=== PATIENT | female | born 1975 | race Caucasian/White ===

== ENCOUNTER 2022-10-11 10:55 | Emergency (ER) | payer BC, MEDICAID, SELFPAY ==
[2022-10-11 11:06] VITALS: BP 109/76; PULSE 85; RESP 18; TEMP 36.2; O2SAT 96; BMI 31.3
--- NOTE | 2022-10-11 11:53 | CRLHL7_ITS ---
For Patients: As a result of the Century Cures Act, medical imaging exams and procedure reports are released immediately into your electronic medical record. You may view this report before your referring provider. If you have questions, please contact your health care provider. HISTORY: Cough and shortness of breath. TECHNIQUE: Two views of the chest. COMPARISON: 01/22/2022. FINDINGS: There is no acute lung infiltrate or pulmonary edema. No pneumothorax or pleural effusion. Heart size and pulmonary vasculature are within normal limits. No acute bony abnormality. IMPRESSION: No acute disease. Dictated by Jr Merino MD @ 10/11/2022 12:41:00 PM Dictated by: Jr Merino MD @ 10/11/2022 12:41:03 (Electronically Signed)
--- NOTE | 2022-10-11 11:55 | ED.GENADULT ---
HPI - General Adult General Chief complaint: Cough Stated complaint: Short of breath, headache, cough Time Seen by Provider: 10/11/22 11:42 History of Present Illness HPI narrative: This 47-year-old female comes in reporting upper respiratory symptoms that began a couple weeks ago. She states that she got better for 4 5 days but now in the last day or so she feels much worse with shortness of breath, cough, and generalized body aches and pains. She does arrive with normal temperature, pulse, and oximetry on room air. Related Data Home Medications Medication Instructions Recorded Confirmed buspirone 15 mg tablet 15 mg PO DAILY 10/11/22 10/11/22 citalopram 20 mg tablet 20 mg PO .every other day 10/11/22 10/11/22 gabapentin 100 mg capsule 100 mg PO DAILY 10/11/22 10/11/22 lorazepam 0.5 mg tablet 0.5 mg PO PRN 10/11/22 pantoprazole 40 mg tablet,delayed 40 mg PO DAILY 10/11/22 10/11/22 release trazodone 50 mg tablet 50 mg PO PRN 10/11/22 Previous Rx's Medication Instructions Recorded albuterol sulfate 90 mcg/actuation 2 puff inhalation Q4-6H PRN 10/11/22 aerosol inhaler (Proventil HFA) shortness of breath or wheezing #8.5 grams azithromycin 250 mg tablet See Rx Instructions PO .COMPLEX #6 10/11/22 (Zithromax Z-Simón) tabs methylprednisolone 4 mg tablets in See Rx Instructions PO .COMPLEX 10/11/22 a dose pack (Medrol (Simón)) #21 ea Allergies Allergy/AdvReac Type Severity Reaction Status Date / Time clindamycin Allergy Intermediate Verified 10/11/22 11:10 Penicillins Allergy Unknown as child Verified 10/11/22 11:10 Review of Systems Status of ROS: Reports: 10 or more systems reviewed and unremarkable except as noted in History and below Narrative: Constitutional: No fevers, no weight gain or loss. Eyes: No discharge. No vision changes. HENT: Nasal congestion, no sore throat, no ear pain. Cardiovascular: No chest pain, no palpitations. Respiratory: Occasional cough. Shortness of breath. Gastrointestinal: No abdominal pain, no vomiting, no diarrhea. Genitourinary: No dysuria, no hematuria. Musculoskeletal: Normal range of motion. Skin: No rashes, no pruritis. Neurological: No dizziness, weakness, sensory change, speech change. Endo/Heme/Allergies: No bruising or bleeding. No polydipsia. Pysch: no suicidality, no anxiety, no insomnia. All other systems reviewed and are negative. Exam Narrative: Exam Narrative: Constitutional: Well-developed, well-nourished, no acute distress. HEENT: Normocephalic, atraumatic. Neck: Normal range of motion. Nontender. Supple. Heart: Regular. No murmurs. Normal rate. Intact distal pulses. Lungs: Clear to auscultation. No chest discomfort. No wheezes, rhonchi, or rales. Abdomen: Normal bowel sounds. Nontender. No rebound tenderness. Genitalia: Deferred. Back: No midline tenderness. Normal range of motion. Extremities: Normal range of motion. No injury. Skin: Intact. No rash. Warm. No erythema or pallor. Neurologic: No altered sensation. No weakness. Alert and oriented. Psychiatric: No suicidality. No anxiety or depression. No insomnia. Nursing notes and vitals signs are reviewed. Const: Vital Signs, click to edit/add: Vital Signs - 24 hr 10/11/22 11:06 Temperature 97.1 F L Pulse Rate [Pulse Oximeter] 85 Respiratory Rate 18 Blood Pressure [Ri ght Upper Arm] 109/76 Pulse Oximetry 96 Oxygen Delivery Me thod Room Air Course Vital Signs Vital signs: Initial Vital Signs Temperature 97.1 F L 10/11/22 11:06 Temperature Source Temporal Artery Scan 10/11/22 11:06 Pulse Rate 85 10/11/22 11:06 Respiratory Rate 18 10/11/22 11:06 Blood Pressure 109/76 10/11/22 11:06 Blood Pressure Mean 87 10/11/22 11:06 Blood Pressure Position Sitting 10/11/22 11:06 Pulse Oximetry 96 10/11/22 11:06 Oxygen Delivery Method 10/11/22 11:06 Vital Signs Temperature 97.1 F L 10/11/22 11:06 Pulse Rate 85 10/11/22 11:06 Respiratory Rate 18 10/11/22 11:06 Blood Pressure 109/76 10/11/22 11:06 Pulse Oximetry 96 10/11/22 11:06 Oxygen Delivery Method 10/11/22 11:06 Temperature 97.1 F L 10/11/22 11:06 Pulse Rate 85 10/11/22 11:06 Respiratory Rate 18 10/11/22 11:06 Blood Pressure 109/76 10/11/22 11:06 Pulse Oximetry 96 10/11/22 11:06 Oxygen Delivery Method 10/11/22 11:06 Medical Decision Making MDM Narrative Medical decision making narrative: This patient comes in reporting worsening upper respiratory symptoms over the past day or so. A chest x-ray returns with no acute findings. Additionally her nasal swab is negative for COVID, influenza, and RSV. She feels short of breath but is maintaining normal oximetry and other vital signs. Given the duration of her illness an worsening symptoms recently I did prescribe Zithromax, Medrol Dosepak, and albuterol. She is okay to return home. Lab Data Labs: Lab Results 10/11/22 Range/Units 11:12 SARS-CoV-2 (PCR) Negative SARS-CoV-2 (Negative) Influenza Type A (PCR) Negative PCR FLU A (Negative) Influenza Type B (PCR) Negative PCR FLU B (Negative) RSV (PCR) Negative PCR RSV (Negative) Imaging Data Chest x-ray: Radiologist's impression: No acute disease. Discharge Plan Discharge Clinical Impression: Acute lower respiratory infection Patient Disposition: Home, Self-Care Condition: Stable Additional Instructions: Take medication as prescribed. Follow up with MD or return if worsening. Prescriptions: New methylprednisolone [Medrol (Simón)] 4 mg tablets,dose pack See Rx Instructions .ROUTE .COMPLEX Qty: 21 0RF Rx Instructions: orally per package directions azithromycin [Zithromax Z-Simón] 250 mg tablet See Rx Instructions .ROUTE .COMPLEX Qty: 6 0RF Rx Instructions: For 250 mg dose pack: take 500 mg today (day 1), then 250 mg for 4 days (days 2-5) albuterol sulfate [Proventil HFA] 90 mcg/actuation HFA aerosol inhaler 2 puff inhalation Q4-6H PRN (Reason: shortness of breath or wheezing) Qty: 8.5 0RF No Action buspirone 15 mg tablet 15 mg PO DAILY trazodone 50 mg tablet 50 mg PO PRN citalopram 20 mg tablet 20 mg PO .every other day lorazepam 0.5 mg tablet 0.5 mg PO PRN pantoprazole 40 mg tablet,delayed release (DR/EC) 40 mg PO DAILY gabapentin 100 mg capsule 100 mg PO DAILY Follow Up/Referrals: North Gamboa MD [Primary Care Provider] - Stand Alone Forms: [employer] Info Instructions
[2022-10-11 11:58] LABS: PCR FLU A Negative PCR FLU A (Negative); PCR FLU B Negative PCR FLU B (Negative); PCR RSV Negative PCR RSV (Negative)
[2022-10-11 11:59] LABS: SARS PCR* Negative SARS-CoV-2 (Negative)
[2022-10-11] MEDS: dexAMETHasone 10 MG/ML inj PO (12:12)
== END 2022-10-11 13:25 | disposition home or self-care (01) ==
PROVIDERS: Emergency Provider Emergency Medicine Emergency Medical Services; PCP Family Medicine
DX: J22 Unspecified acute lower respiratory infection (principal)
CPT/HCPCS: 71046; 87502; 87634; 87635; 99284; J1100

== ENCOUNTER 2023-11-21 18:28 | Emergency (ER) | payer BC, MEDICAID, SELFPAY ==
[2023-11-21 18:56] VITALS: BP 110/77; PULSE 105; RESP 16; TEMP 36.9; O2SAT 98; BMI 31.6
--- NOTE | 2023-11-21 19:19 | ED.GENADULT ---
HPI - General Adult General Chief complaint: Nausea/Vomiting Stated complaint: Alcohol Withdrawl Time Seen by Provider: 11/21/23 18:43 History of Present Illness HPI narrative: This 48-year-old female comes in thinking that she is experiencing symptoms of withdrawal from alcohol. She states that she has been cutting way back in her alcohol consumption and sometimes goes about 4 days without any drink at all. Yesterday she did have beer, wine, and hard drinks. Today she awoke from a nap and felt very anxious and tremulous. She does have some Ativan at home and states that she took 1.5 mg and now feels better and somewhat sleepy. She states that her last drink was a couple beers this morning. Currently she does not have any abdominal pain but reports significant nausea. Related Data Home Medications Medication Instructions Recorded Confirmed buspirone 15 mg tablet 15 mg PO DAILY 10/11/22 10/11/22 citalopram 20 mg tablet 20 mg PO .every other day 10/11/22 11/21/23 gabapentin 100 mg capsule 100 mg PO DAILY 10/11/22 11/21/23 lorazepam 0.5 mg tablet 0.5 mg PO PRN 10/11/22 pantoprazole 40 mg tablet,delayed 40 mg PO DAILY 10/11/22 11/21/23 release trazodone 50 mg tablet 50 mg PO PRN 10/11/22 thiamine HCl (vitamin B1) 100 mg 100 mg PO DAILY 11/21/23 11/21/23 tablet Previous Rx's Medication Instructions Recorded albuterol sulfate 90 mcg/actuation 2 puff inhalation Q4-6H PRN 10/11/22 aerosol inhaler (Proventil HFA) shortness of breath or wheezing #8.5 grams Allergies Allergy/AdvReac Type Severity Reaction Status Date / Time clindamycin Allergy Intermediate Verified 11/21/23 18:52 Penicillins Allergy Unknown as child Verified 11/21/23 18:52 sertraline Allergy Unknown Verified 11/21/23 18:53 Review of Systems Status of ROS: Reports: 10 or more systems reviewed and unremarkable except as noted in History and below Narrative: Constitutional: No fevers, no weight gain or loss. Eyes: No discharge. No vision changes. HENT: No congestion, no sore throat, no ear pain. Cardiovascular: No chest pain, no palpitations. Respiratory: No shortness of breath, no wheezes, no cough. Gastrointestinal: No abdominal pain, no vomiting, no diarrhea. Genitourinary: No dysuria, no hematuria. Musculoskeletal: Normal range of motion. Skin: No rashes, no pruritis. Neurological: No dizziness, weakness, sensory change, speech change. Endo/Heme/Allergies: No bruising or bleeding. No polydipsia. Pysch: no suicidality, no anxiety, no insomnia. Alcohol abuse. All other systems reviewed and are negative. PFSH PFSH Social History Smoking Status: Unknown if ever smoked Do you use any of these nicotine containing products: None How often do you have a drink containing alcohol: monthly or less How often do you have six or more drinks on one occasion: Never AUDIT-C Alcohol total score: 1 Non-prescribed substance use: denies use Exam Narrative: Exam Narrative: Constitutional: Well-developed, well-nourished, no acute distress. HEENT: Normocephalic, atraumatic. Neck: Normal range of motion. Nontender. Supple. Heart: Regular. No murmurs. Tachycardia, 105 beats per minute. Intact distal pulses. Lungs: Clear to auscultation. No chest discomfort. No wheezes, rhonchi, or rales. Abdomen: Normal bowel sounds. Nontender. No rebound tenderness. Genitalia: Deferred. Back: No midline tenderness. Normal range of motion. Extremities: Normal range of motion. No injury. Skin: Intact. No rash. Warm. No erythema or pallor. Neurologic: No altered sensation. No weakness. Alert and oriented. Psychiatric: No suicidality. No insomnia. Nursing notes and vitals signs are reviewed. Const: Vital Signs, click to edit/add: Vital Signs - 24 hr 11/21/23 18:56 11/21/23 19:46 Temperature 98.5 F Pulse Rate [Pulse Oximeter] 105 H 89 Respiratory Rate 16 16 Blood Pressure [Ri ght Upper Arm] 110/77 122/72 Pulse Oximetry 98 97 Oxygen Delivery Me thod Room Air Room Air Course Vital Signs Vital signs: Initial Vital Signs Temperature 98.5 F 11/21/23 18:56 Temperature Source Temporal Artery Scan 11/21/23 18:56 Pulse Rate 105 H 11/21/23 18:56 Pulse Rhythm Regular 11/21/23 18:56 Respiratory Rate 16 11/21/23 18:56 Blood Pressure 110/77 11/21/23 18:56 Blood Pressure Mean 88 11/21/23 18:56 Blood Pressure Position Sitting 11/21/23 18:56 Pulse Oximetry 98 11/21/23 18:56 Oxygen Delivery Method Room Air 11/21/23 18:56 Vital Signs Temperature 98.5 F 11/21/23 18:56 Pulse Rate 105 H 11/21/23 18:56 Respiratory Rate 16 11/21/23 18:56 Blood Pressure 110/77 11/21/23 18:56 Pulse Oximetry 98 11/21/23 18:56 Oxygen Delivery Method Room Air 11/21/23 18:56 Temperature 98.5 F 11/21/23 18:56 Pulse Rate 89 11/21/23 19:46 Respiratory Rate 16 11/21/23 19:46 Blood Pressure 122/72 11/21/23 19:46 Pulse Oximetry 97 11/21/23 19:46 Oxygen Delivery Method Room Air 11/21/23 19:46 Medications Administered Medications: Generic Name Dose Route Start Last Admin Trade Name Yanira PRN Reason Stop Dose Admin Sodium Chloride 1,000 mls @ 1,000 mls/hr 11/21/23 19:30 11/21/23 19:40 0.9 % Sodium Chloride 1000 Ml IV 11/21/23 20:29 1,000 mls/hr .Q1H SUJATA Administration Ondansetron HCl 4 mg 11/21/23 19:18 11/21/23 19:40 Ondansetron 2 Mg/Ml Inj IVP 11/21/23 19:19 4 mg ONCE ONE Administration Medical Decision Making MDM Narrative Medical decision making narrative: This patient comes in reporting some symptoms of withdrawal that are now much better upon arrival as she had taken 1.5 mg of Ativan prior to arrival. She does complain of some nausea. She arrives with mild tachycardia but otherwise has normal vital signs. An IV was established where she received a L of normal saline and 4 mg of Zofran. Lab results returned with normal findings. The patient is feeling better and is okay to return home. I did offer detox but she declined this and states that she typically is doing better and his cutting way back on use of alcohol except for yesterday where she had more than normal. She is okay to return home and did receive a prescription for Zofran. Lab Data Labs: Lab Results 11/21/23 Range/Units 19:40 WBC 5.97 (4.50-11.00) K/uL RBC 3.96 L (4.00-5.20) m/uL Hgb 13.0 (12.0-16.0) gm/dL Hct 38.5 (33.0-51.0) % MCV 97 (80-100) fL MCH 33 (26-34) pg MCHC 34 (32-36) gm/dL RDW Coeff of Vannessa 12.2 (11.5-15.5) % Plt Count 323 (140-440) K/uL Neut % (Auto) 48.4 (42.0-72.0) % Lymph % (Auto) 36.2 (20-44) % [place]ud[place]eth % (Auto) 11.4 H (0.0-11.0) % Eos % (Auto) 2.5 (0.0-7.0) % Baso % (Auto) 1.3 (0.0-3.0) % Neut # (Auto) 2.89 (1.7-7.0) K/uL Lymph # (Auto) 2.16 (0.90-2.90) K/uL [place] # (Auto) 0.70 (0.00-0.90) K/UL Eos # (Auto) 0.15 (0.00-0.50) K/uL Baso # (Auto) 0.08 (0.00-0.30) K/uL Abs Immat Gran (auto) 0.01 (0.00-0.30) K/uL Imm/Tot Granulo (auto) 0.2 % Sodium 138 (135-149) mmol/L Potassium 3.9 (3.6-5.1) mmol/L Chloride 102 (96-114) mmol/L Carbon Dioxide 24 (20-32) mmol/L Anion Gap 12 (7-15) mEq/L BUN 19 (5-24) mg/dL Creatinine 1.0 (0.5-1.5) mg/dL Estimated Creat Clear 63.25 Estimated GFR 70 ml/min Glucose 83 (60-115) mg/dL Calcium 8.7 (8.4-10.6) mg/dL Ethyl Alcohol 0.01 (0.01-0.03) % Discharge Plan Discharge Additional Instructions: Take Zofran as needed and directed for nausea symptoms. Follow up with MD return if worsening. Prescriptions: No Action buspirone 15 mg tablet 15 mg PO DAILY trazodone 50 mg tablet 50 mg PO PRN citalopram 20 mg tablet 20 mg PO .every other day lorazepam 0.5 mg tablet 0.5 mg PO PRN pantoprazole 40 mg tablet,delayed release (DR/EC) 40 mg PO DAILY gabapentin 100 mg capsule 100 mg PO DAILY albuterol sulfate [Proventil HFA] 90 mcg/actuation HFA aerosol inhaler 2 puff inhalation Q4-6H PRN (Reason: shortness of breath or wheezing) Qty: 8.5 0RF thiamine HCl (vitamin B1) 100 mg tablet 100 mg PO DAILY Follow Up/Referrals: [place] Gamb[place] MD [Referring] - Stand Alone Forms: [employer] Info Instructions
[2023-11-21] MEDS: 0.9 % SODIUM CHLORIDE 1000 ml 1,000 ML IV (19:40)
[2023-11-21] MEDS: ONDANSETRON 2 MG/ML inj 4 MG IVP (19:40)
[2023-11-21 19:46] VITALS: BP 122/72; PULSE 89; RESP 16; O2SAT 97
[2023-11-21 19:46] LABS: Basophils Absolute Auto 0.08 K/uL (0.00-0.30); Basophils Percent Auto 1.3 % (0.0-3.0); Eosinophils Absolute Auto 0.15 K/uL (0.00-0.50); Eosinophils Percent Auto 2.5 % (0.0-7.0); Hematocrit 38.5 % (33.0-51.0); Immature Granulocytes Abs Auto 0.01 K/uL (0.00-0.30); Immature Granulocytes Pct Auto 0.2 %; Lymphocytes Absolute Auto 2.16 K/uL (0.90-2.90); Lymphocytes Percent Auto 36.2 % (20-44); Mean Corpuscular HGB Conc 34 gm/dL (32-36); Mean Corpuscular Hemoglobin 33 pg (26-34); Mean Corpuscular Volume 97 fL (80-100); Monocytes Percent Auto 11.4 % (0.0-11.0); Neutrophils Absolute Auto 2.89 K/uL (1.7-7.0); Neutrophils Percent Auto 48.4 % (42.0-72.0); Platelet Count* 323 K/uL (140-440); RDW Coefficient of Variation % 12.2 % (11.5-15.5); Red Blood Count 3.96 m/uL (4.00-5.20); White Blood Count* 5.97 K/uL (4.50-11.00)
[2023-11-21 20:03] LABS: Slide Review Reflex No
[2023-11-21 20:04] LABS: Chloride* 102 mmol/L (96-114)
[2023-11-21 20:05] LABS: Potassium* 3.9 mmol/L (3.6-5.1); Sodium* 138 mmol/L (135-149)
--- NOTE | 2023-11-21 20:05 | PC.NURSE ---
patient given information from intranet SS page about chemical dependency resources and how to contact [facility] for resources
[2023-11-21 20:07] LABS: Anion Gap 12 mEq/L (7-15); Carbon Dioxide* 24 mmol/L (20-32); Est. Creatinine Clearance* 63.25; Estimated Glomerular Filt Rate 70 ml/min
[2023-11-21 20:08] LABS: Blood Urea Nitrogen* 19 mg/dL (5-24); Calcium* 8.7 mg/dL (8.4-10.6); Ethanol* 0.01 % (0.01-0.03); Glucose* 83 mg/dL (60-115)
--- NOTE | 2023-11-21 20:29 | PC.NURSE ---
patient DC ambulatory in no distress, RR even and unlabored. DC information gone over and patient has no further questions
== END 2023-11-21 20:29 | disposition home or self-care (01) ==
PROVIDERS: Emergency Provider Emergency Medicine Emergency Medical Services
DX: F10.239 Alcohol dependence with withdrawal, unspecified (principal)
CPT/HCPCS: 36415; 80048; 82077; 85025; 96374; 99284; J2405; J7030

== ENCOUNTER 2023-12-22 06:52 | Outpatient (CLI) | payer MEDICAID, SELFPAY | END 2023-12-22 06:53 | disposition home or self-care (01) | LOC: INJ CL 06:54 | PROVIDERS: PCP Family Medicine; Visit Provider Family Medicine | DX: M51.26 Other intervertebral disc displacement, lumbar region (principal); M54.16 Radiculopathy, lumbar region | CPT/HCPCS: 62323; J0702; Q9966 ==

== ENCOUNTER 2024-01-25 09:08 | Outpatient (CLI) | payer MEDICAID, SELFPAY ==
--- NOTE | 2024-01-25 10:50 | W.ANESCHARGE ---
Anesthesia Charges Start Date/Time Anesthesia Start Date: 01/25/24 Anesthesia Start Time: 10:21 Stop Date/Time Anesthesia Stop Date: 01/25/24 Anesthesia Stop Time: 10:48
--- NOTE | 2024-01-25 11:43 | W.ANESCHARGE ---
Anesthesia Charges Start Date/Time Anesthesia Start Date: 01/25/24 Anesthesia Start Time: 10:21 Stop Date/Time Anesthesia Stop Date: 01/25/24 Anesthesia Stop Time: 10:48
== END 2024-01-25 09:09 | disposition home or self-care (01) ==
LOC: OP CLINIC 09:09
PROVIDERS: PCP Family Medicine; Visit Provider Internal Medicine Gastroenterology
DX: Z12.11 Encounter for screening for malignant neoplasm of colon (principal); K63.5 Polyp of colon; D17.5 Benign lipomatous neoplasm of intra-abdominal organs
CPT/HCPCS: 45380; 811; 88305; J2704

== ENCOUNTER 2024-02-26 20:41 | Emergency (ER) | payer MEDICAID, SELFPAY ==
[2024-02-26 20:50] VITALS: BP 160/69; PULSE 90; RESP 20; TEMP 36.7; O2SAT 99; BMI 33.3
--- NOTE | 2024-02-26 21:22 | ED.GENADULT ---
HPI - General Adult General Chief complaint: Jaw Injury/Pain Stated complaint: chest/jaw pain Time Seen by Provider: 02/26/24 20:42 Source: patient Mode of arrival: ambulatory Limitations: no limitations History of Present Illness HPI narrative: 48-year-old female coming in today complaining of chest pain. She states the episode occurred approximately 7 hours ago. She states that she was at work when she felt lower chest pain that radiated up the chest and into her jaw bilaterally. It lasted about 15 minutes. She felt nauseated when this occurred. She denies any dizziness or diaphoresis. She denies any recent illness. She was just sitting at work when this happen and she rested and it went away. She did take a baby aspirin about 30 minutes after the the discomfort occurred. She states that she has been fine for the last 7 hours, however she was telling family and friends about the episode in everyone told her that she needed to come into the ER so she presents for evaluation. She is currently asymptomatic and has been on for 7 hours. She states that she does have a history of GERD, has not been taking her pantoprazole for about a week, takes famotidine every now and then. She also states that she drinks 6-12 beers about 4-5 times per week if not more and she smokes when she is drinking. Patient states that she has been to rehab before, drinks because it makes her feel more calm. Patient did take a lorazepam this afternoon because she was anxious. Patient has a history of anxiety, alcohol use disorder status post treatment in the past, back pain secondary to herniated disc,, history of PVCs, IBS. Related Data Home Medications Medication Instructions Recorded Confirmed buspirone 15 mg tablet 15 mg PO DAILY 10/11/22 02/26/24 citalopram 20 mg tablet 20 mg PO .every other day 10/11/22 02/26/24 gabapentin 100 mg capsule 100 mg PO DAILY 10/11/22 02/26/24 lorazepam 0.5 mg tablet 0.5 mg PO DAILY PRN 10/11/22 02/26/24 pantoprazole 40 mg tablet,delayed 40 mg PO DAILY 10/11/22 02/26/24 release trazodone 50 mg tablet 50 mg PO HS PRN 10/11/22 02/26/24 thiamine HCl (vitamin B1) 100 mg 100 mg PO DAILY 11/21/23 02/26/24 tablet Previous Rx's Medication Instructions Recorded albuterol sulfate 90 mcg/actuation 2 puff inhalation Q4-6H PRN 10/11/22 aerosol inhaler (Proventil HFA) shortness of breath or wheezing #8.5 grams Allergies Allergy/AdvReac Type Severity Reaction Status Date / Time clindamycin Allergy Intermediate Rash Verified 02/26/24 20:53 Penicillins Allergy Unknown as child Verified 02/26/24 20:53 sertraline Allergy Unknown Verified 02/26/24 20:53 atomoxetine Allergy Verified 02/26/24 20:53 bupropion Allergy Verified 02/26/24 20:53 venlafaxine [From Effexor] Allergy Verified 02/26/24 20:53 Review of Systems Status of ROS: Reports: 10 or more systems reviewed and unremarkable except as noted in History and below [facility] Social History Smoking Status: Unknown if ever smoked Do you use any of these nicotine containing products: None How often do you have a drink containing alcohol: monthly or less How often do you have six or more drinks on one occasion: Never AUDIT-C Alcohol total score: 1 Non-prescribed substance use: denies use Exam Narrative: Exam Narrative: Well-nourished well-developed patient in no acute distress. Alert and oriented. Answers questions appropriately. Mood and affect are appropriate. Thoughts are goal oriented and rational. No tangential or magical thinking noted. Patient speaks in full sentences without needing to catch her breath. Patient does not appear ill or toxic. HEENT: Normocephalic atraumatic. Pupils are equally round reactive to light. Extraocular muscles are intact. Conjunctivae are moist without any icterus noted. Moist mucous membranes. Posterior pharynx is normal. Neck is soft without any lymphadenopathy or thyromegaly. No masses are appreciated. Cardiovascular: Heart is regular rate and rhythm S1 and S2 are present without any murmurs. Lungs: Clear to auscultation bilaterally no wheezes rhonchi or rales are appreciated. Patient takes deep breaths without any discomfort. Abdomen: Soft and nontender nondistended with normal bowel sounds. No guarding or rebound. Extremities: Bilateral lower extremities are without edema. Normal DP and PT pulses. Skin: Well perfused without any obvious rashes. Const: Vital Signs, click to edit/add: Vital Signs - 24 hr 02/26/24 20:50 Temperature 98.0 F Pulse Rate [Right Pulse Oximeter] 90 Respiratory Rate 20 Blood Pressure [Ri ght Upper Arm] 160/69 H Pulse Oximetry 99 Oxygen Delivery Me thod Room Air Course Course ED Course: EKG, read by me, shows normal sinus rhythm with a pulse of 82. Point of care troponin is 0. CBC is unremarkable. Chemistry shows slightly low potassium at 3.5, otherwise unremarkable. Normal LFTs, normal lipase. Repeat EKG, read by me, showing normal sinus rhythm with a pulse of 71. No acute ST changes. Repeat troponin 0. Patient remained asymptomatic while she was here. Vital Signs Vital signs: Initial Vital Signs Temperature 98.0 F 02/26/24 20:50 Temperature Source Temporal Artery Scan 02/26/24 20:50 Pulse Rate 90 02/26/24 20:50 Pulse Rhythm Regular 02/26/24 20:50 Pulse Strength 3+ Normal 02/26/24 20:50 Respiratory Rate 20 02/26/24 20:50 Blood Pressure 160/69 H 02/26/24 20:50 Blood Pressure Mean 99 02/26/24 20:50 Blood Pressure Position Sitting 02/26/24 20:50 Pulse Oximetry 99 02/26/24 20:50 Oxygen Delivery Method Room Air 02/26/24 20:50 Vital Signs Temperature 98.0 F 02/26/24 20:50 Pulse Rate 90 02/26/24 20:50 Respiratory Rate 20 02/26/24 20:50 Blood Pressure 160/69 H 02/26/24 20:50 Pulse Oximetry 99 02/26/24 20:50 Oxygen Delivery Method Room Air 02/26/24 20:50 Temperature 98.0 F 02/26/24 20:50 Pulse Rate 90 02/26/24 20:50 Respiratory Rate 20 02/26/24 20:50 Blood Pressure 160/69 H 02/26/24 20:50 Pulse Oximetry 99 02/26/24 20:50 Oxygen Delivery Method Room Air 02/26/24 20:50 Medical Decision Making MDM Narrative Medical decision making narrative: 48-year-old female with a 15 minute episode of chest, neck and jaw discomfort of unclear etiology. We discussed muscle spasm, esophageal spasm. I do not believe that her symptoms were cardiac in nature given her history and workup today. Discussed reasons for follow-up. Patient was reassured. Medical Records Medical records reviewed: Yes I reviewed the patient's medical records Lab Data Lab results reviewed: Yes I reviewed the patient's lab results Labs: Lab Results 02/26/24 02/26/24 02/26/24 Range/Units 21:14 21:25 23:00 WBC 8.13 (4.50-11.00) K/uL RBC 3.65 L (4.00-5.20) m/uL Hgb 12.1 (12.0-16.0) gm/dL Hct 35.8 (33.0-51.0) % MCV 98 (80-100) fL MCH 33 (26-34) pg MCHC 34 (32-36) gm/dL RDW Coeff of [place] 12.6 (11.5-15.5) % Plt Count 226 (140-440) K/uL Neut % (Auto) 49.0 (42.0-72.0) % Lymph % (Auto) 37.5 (20-44) % [place] % (Auto) 9.2 (0.0-11.0) % Eos % (Auto) 3.4 (0.0-7.0) % Baso % (Auto) 0.5 (0.0-3.0) % Neut # (Auto) 3.98 (1.7-7.0) K/uL Lymph # (Auto) 3.05 H (0.90-2.90) K/uL [place] # (Auto) 0.70 (0.00-0.90) K/UL Eos # (Auto) 0.28 (0.00-0.50) K/uL Baso # (Auto) 0.04 (0.00-0.30) K/uL Abs Immat Gran (auto) 0.03 (0.00-0.30) K/uL Imm/Tot Granulo (auto) 0.4 % Sodium 135 (135-149) mmol/L Potassium 3.5 L (3.6-5.1) mmol/L Chloride 109 (96-114) mmol/L Carbon Dioxide 21 (20-32) mmol/L Anion Gap 5 L (7-15) mEq/L BUN 19 (5-24) mg/dL Creatinine 0.8 (0.5-1.5) mg/dL Estimated Creat Clear 79.07 Estimated GFR 92 ml/min Glucose 113 (60-115) mg/dL Calcium 9.0 (8.4-10.6) mg/dL Total Bilirubin 0.5 (0.1-1.5) mg/dL Direct Bilirubin 0.0 (0.0-0.5) mg/dL AST 23 (12-35) U/L ALT 23 (4-35) U/L Alkaline Phosphatase 64 (40-150) U/L Troponin I < 0.01 L (0.01-0.04) ng/mL Total Protein 6.3 (6.0-8.3) g/dL Albumin 4.0 (3.3-5.0) g/dL Lipase 60 (23-300) U/L POC Troponin I 0.00 L 0.00 L (0.01-0.04) ng/ml ECG Data Attestation: I personally reviewed and interpreted this ECG as follows: Discharge Plan Discharge Clinical Impression: Atypical chest pain Patient Disposition: Home, Self-Care Condition: Stable Additional Instructions: Your workup was normal today. There is no evidence of a heart attack. There is no evidence of infection or inflammation. Follow-up with your primary care provider as needed. Prescriptions: No Action buspirone 15 mg tablet 15 mg PO DAILY trazodone 50 mg tablet 50 mg PO HS PRN citalopram 20 mg tablet 20 mg PO .every other day lorazepam 0.5 mg tablet 0.5 mg PO DAILY PRN pantoprazole 40 mg tablet,delayed release (DR/EC) 40 mg PO DAILY gabapentin 100 mg capsule 100 mg PO DAILY albuterol sulfate [Proventil HFA] 90 mcg/actuation HFA aerosol inhaler 2 puff inhalation Q4-6H PRN (Reason: shortness of breath or wheezing) Qty: 8.5 0RF thiamine HCl (vitamin B1) 100 mg tablet 100 mg PO DAILY Follow Up/Referrals: Geovanna Beavers DO [Primary Care Provider] - Stand Alone [facility] Inst[facility]
[2024-02-26 21:29] LABS: Eosinophils Percent Auto 3.4 % (0.0-7.0); Hematocrit 35.8 % (33.0-51.0); Hemoglobin* 12.1 gm/dL (12.0-16.0); Lymphocytes Percent Auto 37.5 % (20-44); Mean Corpuscular HGB Conc 34 gm/dL (32-36); Mean Corpuscular Hemoglobin 33 pg (26-34); Mean Corpuscular Volume 98 fL (80-100); Monocytes Percent Auto 9.2 % (0.0-11.0); Platelet Count* 226 K/uL (140-440); RDW Coefficient of Variation % 12.6 % (11.5-15.5); Red Blood Count 3.65 m/uL (4.00-5.20); White Blood Count* 8.13 K/uL (4.50-11.00)
[2024-02-26 21:30] VITALS: O2SAT 99
[2024-02-26 21:30] LABS: Basophils Absolute Auto 0.04 K/uL (0.00-0.30); Basophils Percent Auto 0.5 % (0.0-3.0); Eosinophils Absolute Auto 0.28 K/uL (0.00-0.50); Immature Granulocytes Abs Auto 0.03 K/uL (0.00-0.30); Immature Granulocytes Pct Auto 0.4 %; Lymphocytes Absolute Auto 3.05 K/uL (0.90-2.90); Neutrophils Absolute Auto 3.98 K/uL (1.7-7.0)
[2024-02-26 21:37] LABS: Slide Review Reflex No
[2024-02-26 21:44] LABS: Chloride* 109 mmol/L (96-114); Potassium* 3.5 mmol/L (3.6-5.1); Sodium* 135 mmol/L (135-149)
[2024-02-26 21:46] LABS: Anion Gap 5 mEq/L (7-15); Aspartate Amino Transferase* 23 U/L (12-35); Bilirubin Total* 0.5 mg/dL (0.1-1.5); Blood Urea Nitrogen* 19 mg/dL (5-24); Carbon Dioxide* 21 mmol/L (20-32); Creatinine* 0.8 mg/dL (0.5-1.5); Est. Creatinine Clearance* 79.07; Estimated Glomerular Filt Rate 92 ml/min; Total Protein* 6.3 g/dL (6.0-8.3)
[2024-02-26 21:47] LABS: Alanine Aminotransferase* 23 U/L (4-35); Alkaline Phosphatase* 64 U/L (40-150); Glucose* 113 mg/dL (60-115); Lipase* 60 U/L (23-300)
[2024-02-26 22:00] LABS: Troponin I* < 0.01 ng/mL (0.01-0.04)
[2024-02-26 23:21] VITALS: BP 112/72; PULSE 74; RESP 20; TEMP 36.7; O2SAT 99
[2024-02-26 23:28] VITALS: BP 113/72; PULSE 82; RESP 20; TEMP 36.7; O2SAT 99
[2024-02-26 23:29] VITALS: BP 113/72; PULSE 82; RESP 20; TEMP 36.7
== END 2024-02-26 23:29 | disposition home or self-care (01) ==
PROVIDERS: Emergency Provider Family Medicine; PCP Family Medicine
DX: R07.9 Chest pain, unspecified (principal)
CPT/HCPCS: 36415; 80048; 80076; 83690; 84484; 85025; 93005; 94761; 99284

== ENCOUNTER 2024-03-15 09:07 | Outpatient (CLI) | payer MEDICAID, SELFPAY | END 2024-03-15 09:08 | disposition home or self-care (01) | PROVIDERS: PCP Family Medicine; Visit Provider Family Medicine | DX: M54.16 Radiculopathy, lumbar region (principal); M51.36 Other intervertebral disc degeneration, lumbar region | CPT/HCPCS: 62323; J0702; Q9966 ==

== ENCOUNTER 2024-06-21 07:30 | Outpatient (RCR) | payer MEDICAID, SELFPAY | END 2024-07-08 08:01 | disposition home or self-care (01) | PROVIDERS: PCP Family Medicine; Visit Provider Family Medicine | DX: M54.2 Cervicalgia (principal); G89.29 Other chronic pain; M54.42 Lumbago with sciatica, left side; M54.9 Dorsalgia, unspecified; Z51.89 Encounter for other specified aftercare | CPT/HCPCS: 97012; 97110; 97140; 97162 ==

== ENCOUNTER 2024-10-20 23:58 | Emergency (ER) | payer MEDICAID, SELFPAY ==
[2024-10-21 00:01] VITALS: BP 138/88; PULSE 102; RESP 18; TEMP 36.3; O2SAT 95; BMI 32.4
--- NOTE | 2024-10-21 00:13 | ED_ITS ---
HPI - Alcohol General Chief Complaint: Dizziness/Vertigo Stated Complaint: Dehydration, alcohol withdrawal Time Seen by Provider: 10/21/24 00:06 History of Present Illness HPI narrative: Patient is a 49-year-old woman who has been drinking over the last few days. Her last drink was either 12 hours ago or 36 hours ago she can not remember. She feels poorly with nausea and inability keep any food down. She has had similar symptoms with alcohol withdrawal in the past. She has no injuries she did not hit her head. She has had nausea vomiting but no change in her bowel or bladder. No abdominal pain no other street drugs. Patient states she is not . Patient has a history of heavy alcohol consumption. Related Data Home Medications ?Medication ?Instructions ?Recorded ?Confirmed buspirone 15 mg tablet 15 mg PO DAILY 10/11/22 02/26/24 citalopram 20 mg tablet 20 mg PO .every other day 10/11/22 02/26/24 gabapentin 100 mg capsule 100 mg PO DAILY 10/11/22 02/26/24 lorazepam 0.5 mg tablet 0.5 mg PO DAILY PRN 10/11/22 02/26/24 pantoprazole 40 mg tablet,delayed 40 mg PO DAILY 10/11/22 02/26/24 release trazodone 50 mg tablet 50 mg PO HS PRN 10/11/22 02/26/24 thiamine HCl (vitamin B1) 100 mg 100 mg PO DAILY 11/21/23 02/26/24 tablet Previous Rx's ?Medication ?Instructions ?Recorded albuterol sulfate 90 mcg/actuation 2 puff inhalation Q4-6H PRN 10/11/22 aerosol inhaler (Proventil HFA) shortness of breath or wheezing #8.5 grams Allergies Allergy/AdvReac Type Severity Reaction Status Date / Time clindamycin Allergy Intermediate Rash Verified 02/26/24 20:53 Penicillins Allergy Unknown as child Verified 02/26/24 20:53 sertraline Allergy Unknown Verified 02/26/24 20:53 atomoxetine Allergy Verified 02/26/24 20:53 bupropion Allergy Verified 02/26/24 20:53 venlafaxine (From Effexor) Allergy Verified 02/26/24 20:53 Review of Systems Status of ROS Reports: 10 or more systems reviewed and unremarkable except as noted in History and below PFSH PFS Social History Smoking Status: Unknown if ever smoked Do you use any of these nicotine containing products: None How often do you have a drink containing alcohol: monthly or less How often do you have six or more drinks on one occasion: Never AUDIT-C Alcohol total score: 1 Non-prescribed substance use: denies use Exam Narrative: Exam Narrative: EXAM GENERAL: Patient appears comfortable and well. EYES: No scleral icterus. ENT: Tympanic membranes and oropharynx normal. THYROID: no thyroid nodules or thyromegaly. LYMPH: No supraclavicular or cervical lymphadenopathy. SKIN: Visible skin seen during exam normal or with benign process only. EXT: No dependent lower extremity pedal edema. HEART: Regular rate and rhythm with no murmurs, rubs, or gallops. LUNGS: Clear to auscultation bilaterally with no crackles or wheezes. ABD: Soft, non tender, non distended. PSYCH: Good eye contact, speech is not pressured. Const: Vital Signs, click to edit/add: Vital Signs - 24 hr 10/21/24 00:01 10/21/24 00:55 Temperature 97.4 F L Pulse Rate [Left P ulse Oximeter] 102 H 89 Respiratory Rate 18 Blood Pressure [Ri ght Upper Arm] 138/88 Pulse Oximetry 95 93 Oxygen Delivery Me thod Room Air Room Air Course Course ED Course: Patient seen and examined. CBC CMP ETOH lipase lactic acid pending. 500 mL of normal saline given as well as 4 mg of Zofran 1 mg of Ativan. Vital Signs Vital signs: Initial Vital Signs Temperature 97.4 F L 10/21/24 00:01 Temperature Source Temporal Artery Scan 10/21/24 00:01 Pulse Rate 102 H 10/21/24 00:01 Pulse Rhythm Regular 10/21/24 00:01 Respiratory Rate 18 10/21/24 00:01 Blood Pressure 138/88 10/21/24 00:01 Blood Pressure Mean 104 10/21/24 00:01 Blood Pressure Position Sitting 10/21/24 00:01 Pulse Oximetry 95 10/21/24 00:01 Oxygen Delivery Method Room Air 10/21/24 00:01 Vital Signs Temperature 97.4 F L 10/21/24 00:01 Pulse Rate 102 H 10/21/24 00:01 Respiratory Rate 18 10/21/24 00:01 Blood Pressure 138/88 10/21/24 00:01 Pulse Oximetry 95 10/21/24 00:01 Oxygen Delivery Method Room Air 10/21/24 00:01 Temperature 97.4 F L 10/21/24 00:01 Pulse Rate 89 10/21/24 00:55 Respiratory Rate 18 10/21/24 00:01 Blood Pressure 138/88 10/21/24 00:01 Pulse Oximetry 93 10/21/24 00:55 Oxygen Delivery Method Room Air 10/21/24 00:55 Medications Administered Medications: Generic Name Dose Route Start Last Admin Trade Name Freq PRN Reason Stop Dose Admin Sodium Chloride 500 mls @ 500 mls/hr 10/21/24 00:10 10/21/24 01:02 0.9 % Sodium Chloride 500 Ml IV 10/21/24 01:09 Infused .Q1H ONE Infusion Lorazepam 1 mg 10/21/24 00:11 10/21/24 00:30 Lorazepam 2 Mg/Ml Inj IVP 10/21/24 00:12 1 mg ONCE ONE Administration Ondansetron HCl 4 mg 10/21/24 00:10 10/21/24 00:30 Ondansetron 2 Mg/Ml Inj IVP 10/21/24 00:11 4 mg ONCE ONE Administration MDM - Alcohol MDM Narrative Medical decision making narrative: Patient is a 49-year-old woman who comes in with early alcohol withdrawal. She has nausea and vomiting. She has for a unremarkable lab workup. She is dizzy and I did give her 500 mL fluid bolus. I also give her 4 mg of Zofran 1 mg of Ativan. 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 I think she is expecting to stay elevated longer in the ER both stable vital signs stable lab and a normal exam with think she can safely be discharged home after receiving Tylenol here in the emergency room which I do think is safe given her liver function tests. I did discharge her home with oral Zofran and Ativan and recommended primary care follow-up. Lab Data Labs: Lab Results 10/21/24 Range/Units 00:15 WBC 7.00 (4.50-11.00) K/uL RBC 3.96 L (4.00-5.20) m/uL Hgb 13.2 (12.0-16.0) gm/dL Hct 38.6 (33.0-51.0) % MCV 98 (80-100) fL MCH 33 (26-34) pg MCHC 34 (32-36) gm/dL RDW Coeff of [place] 12.3 (11.5-15.5) % Plt Count 288 (140-440) K/uL Neut % (Auto) 43.7 (42.0-72.0) % Lymph % (Auto) 43.3 (20-44) % [place] % (Auto) 10.3 (0.0-11.0) % Eos % (Auto) 1.9 (0.0-7.0) % Baso % (Auto) 0.7 (0.0-3.0) % Neut # (Auto) 3.06 (1.7-7.0) K/uL Lymph # (Auto) 3.03 H (0.90-2.90) K/uL [place] # (Auto) 0.70 (0.00-0.90) K/UL Eos # (Auto) 0.13 (0.00-0.50) K/uL Baso # (Auto) 0.05 (0.00-0.30) K/uL Abs Immat Gran (auto) 0.01 (0.00-0.30) K/uL Imm/Tot Granulo (auto) 0.1 % Sodium 139 (135-149) mmol/L Potassium 3.6 (3.6-5.1) mmol/L Chloride 107 (96-114) mmol/L Carbon Dioxide 22 (20-32) mmol/L Anion Gap 10 (7-15) mEq/L BUN 17 (5-24) mg/dL Creatinine 0.8 (0.5-1.5) mg/dL Estimated Creat Clear 78.23 Estimated GFR 91 ml/min Glucose 96 (60-115) mg/dL Lactate 1.2 (0.5-1.9) mmol/L Calcium 9.2 (8.4-10.6) mg/dL Total Bilirubin 0.2 (0.1-1.5) mg/dL AST 28 (12-35) U/L ALT 22 (4-35) U/L Alkaline Phosphatase 69 (40-150) U/L Total Protein 7.0 (6.0-8.3) g/dL Albumin 4.6 (3.3-5.0) g/dL Lipase 72 (23-300) U/L Discharge Plan Discharge Clinical Impression: Alcohol withdrawal Patient Disposition: Home, Self-Care Condition: Stable Instructions: Alcohol Withdrawal (ED) Additional Instructions: Avoid alcohol Ativan as directed Zofran as directed Rest Fluids Activity Level: No Restrictions Discharge Diet: Regular Prescriptions: No Action buspirone 15 mg tablet 15 mg PO DAILY trazodone 50 mg tablet 50 mg PO HS PRN citalopram 20 mg tablet 20 mg PO .every other day lorazepam 0.5 mg tablet 0.5 mg PO DAILY PRN pantoprazole 40 mg tablet,delayed release (DR/EC) 40 mg PO DAILY gabapentin 100 mg capsule 100 mg PO DAILY albuterol sulfate [Proventil HFA] 90 mcg/actuation HFA aerosol inhaler 2 puff inhalation Q4-6H PRN (Reason: shortness of breath or wheezing) Qty: 8.5 0RF thiamine HCl (vitamin B1) 100 mg tablet 100 mg PO DAILY Follow Up/Referrals: Geovanna Beavers DO [Primary Care Provider] - Stand Alone Forms: [facility] Info Instructions
[2024-10-21 00:25] LABS: Lactate* 1.2 mmol/L (0.5-1.9)
[2024-10-21 00:26] LABS: Basophils Absolute Auto 0.05 K/uL (0.00-0.30); Basophils Percent Auto 0.7 % (0.0-3.0); Eosinophils Absolute Auto 0.13 K/uL (0.00-0.50); Eosinophils Percent Auto 1.9 % (0.0-7.0); Hematocrit 38.6 % (33.0-51.0); Hemoglobin* 13.2 gm/dL (12.0-16.0); Immature Granulocytes Abs Auto 0.01 K/uL (0.00-0.30); Immature Granulocytes Pct Auto 0.1 %; Lymphocytes Absolute Auto 3.03 K/uL (0.90-2.90); Lymphocytes Percent Auto 43.3 % (20-44); Mean Corpuscular HGB Conc 34 gm/dL (32-36); Mean Corpuscular Hemoglobin 33 pg (26-34); Mean Corpuscular Volume 98 fL (80-100); Monocytes Percent Auto 10.3 % (0.0-11.0); Neutrophils Absolute Auto 3.06 K/uL (1.7-7.0); Neutrophils Percent Auto 43.7 % (42.0-72.0); Platelet Count* 288 K/uL (140-440); RDW Coefficient of Variation % 12.3 % (11.5-15.5); Red Blood Count 3.96 m/uL (4.00-5.20)
[2024-10-21 00:27] LABS: Slide Review Reflex No
[2024-10-21] MEDS: LORazepam 2 MG/ML inj 1 MG IVP (00:30)
[2024-10-21] MEDS: 0.9 % SODIUM CHLORIDE 500 ML 500 ML IV (00:30)
[2024-10-21] MEDS: ONDANSETRON 2 MG/ML inj 4 MG IVP (00:30)
[2024-10-21 00:41] LABS: Albumin* 4.6 g/dL (3.3-5.0)
[2024-10-21 00:42] LABS: Chloride* 107 mmol/L (96-114); Potassium* 3.6 mmol/L (3.6-5.1); Sodium* 139 mmol/L (135-149)
[2024-10-21 00:44] LABS: Alkaline Phosphatase* 69 U/L (40-150); Anion Gap 10 mEq/L (7-15); Aspartate Amino Transferase* 28 U/L (12-35); Bilirubin Total* 0.2 mg/dL (0.1-1.5); Blood Urea Nitrogen* 17 mg/dL (5-24); Carbon Dioxide* 22 mmol/L (20-32); Creatinine* 0.8 mg/dL (0.5-1.5); Est. Creatinine Clearance* 78.23; Estimated Glomerular Filt Rate 91 ml/min; Glucose* 96 mg/dL (60-115); Lipase* 72 U/L (23-300)
[2024-10-21 00:45] LABS: Alanine Aminotransferase* 22 U/L (4-35); Calcium* 9.2 mg/dL (8.4-10.6)
[2024-10-21 00:55] VITALS: PULSE 89; O2SAT 93
[2024-10-21 01:12] LABS: Ethanol* 0.01 % (0.01-0.03)
[2024-10-21] MEDS: ACETAMINOPHEN 500 MG TABLET 1000 MG PO (01:15)
== END 2024-10-21 01:22 | disposition home or self-care (01) ==
PROVIDERS: Emergency Provider Internal Medicine; PCP Family Medicine
DX: F10.239 Alcohol dependence with withdrawal, unspecified (principal)
CPT/HCPCS: 36415; 80053; 82077; 83605; 83690; 85025; 96374; 96375; 99283; A9270; J2060; J2405; J7030